=== PATIENT | female | born 1990 | race Caucasian/White ===

== ENCOUNTER 2022-11-16 10:41 | Outpatient (CLI) | payer OTHER | END 2022-11-16 10:42 | disposition home or self-care (01) | LOC: CSHCP 10:41 | PROVIDERS: ATTEND Chiropractor | DX: G47.30 Sleep apnea, unspecified (principal); R06.02 Shortness of breath; J44.9 Chronic obstructive pulmonary disease, unspecified | CPT/HCPCS: 71046; 94060; 94760 ==